=== PATIENT | male | born 1980 | race Caucasian/White ===

== ENCOUNTER → 2020-10-19 | Outpatient (CLI) | payer OTHER ==
[~2020-10-19] MED LIST: ASPIRIN325 MG PO; BACTRIM DS TAB1 EACH PO; CATAPRES 0.1MG0.1 MG PO; CYCLOBENZAPRINE10 MG PO; HYDROXYZINE HCL25 MG PO; IBU800 MG PO; IBUPROFEN600 MG PO; KEFLEX500 MG PO; METHADONE HCL T10 MG PO; METHOCARBAMOL500 MG PO; PERCOCET 10-321 EACH PO; ROPINIROLE HC0.25 MG PO; TRAZODONE HCL50 MG PO; VENLAFAXINE HCL75 MG PO; VITAMIN C500 M4 PO; VITAMIN D250 MCG PO
== END ==
LOC: KOH-I 13:46
DX: Z47.89 Encounter for other orthopedic aftercare (principal)
CPT/HCPCS: 73630

== ENCOUNTER → 2020-11-30 | Outpatient (CLI) | payer OTHER | LOC: KOH-I 15:50 | DX: S92.002D Unspecified fracture of left calcaneus, subsequent encounter for fracture with routine healing (principal); M19.072 Primary osteoarthritis, left ankle and foot; X58.XXXD Exposure to other specified factors, subsequent encounter | CPT/HCPCS: 73610; 73630 ==

== ENCOUNTER → 2020-12-29 | Outpatient (CLI) | payer OTHER | LOC: KOH-I 13:47 | DX: M79.672 Pain in left foot (principal); M54.5 Low back pain; M47.816 Spondylosis without myelopathy or radiculopathy, lumbar region | CPT/HCPCS: 72110; 73620 ==

== ENCOUNTER → 2021-01-25 | Outpatient (CLI) | payer OTHER | LOC: KOH-I 14:24 | DX: S92.002D Unspecified fracture of left calcaneus, subsequent encounter for fracture with routine healing (principal) | CPT/HCPCS: 73630 ==

== ENCOUNTER → 2021-04-26 | Outpatient (CLI) | payer OTHER | LOC: KOH-I 14:41 | DX: M25.572 Pain in left ankle and joints of left foot (principal) | CPT/HCPCS: 73610; 73630 ==

== ENCOUNTER → 2022-02-21 | Outpatient (CLI) | payer OTHER | LOC: HEART 5 02-17 15:00 | DX: R00.2 Palpitations (principal); I07.1 Rheumatic tricuspid insufficiency | CPT/HCPCS: 93306 ==